=== PATIENT | male | born 1980 | race Asian ===

== ENCOUNTER 2021-05-08 19:05 | Emergency (ER) | payer OTHER ==
[~2021-05-08] VITALS: Ht 165.1 cm; Wt 73.5 kg
[2021-05-08 21:35] VITALS: BP 152/81
== END 2021-05-08 21:35 | disposition home or self-care (01) ==
LOC: FSED 19:10
DX: K40.90 Unilateral inguinal hernia, without obstruction or gangrene, not specified as recurrent (principal)
CPT/HCPCS: 99282